=== PATIENT | female | born 1925 | race Caucasian/White ===

== ENCOUNTER 2017-04-29 12:58 | Emergency (ER) | payer MEDICARE, BC ==
[2017-04-29] MEDS ORDERED: Lorazepam 2 MG/ML VIAL ONE (13:26)
[2017-04-29] MEDS ORDERED: Lidocaine 1% w/Epinephrine 1:200K 30 ML VIAL ONE (13:27)
--- NOTE | 2017-04-29 14:27 | RAD ---
RADIOGRAPH LEFT WRIST THREE VIEWS: Date: 04-29-17 History: 89-year-old female status post-traumatic injury to the left wrist. FINDINGS: There is diffuse, severe, osteopenia. There is anterior angulation of the distal radial metaphysis an d epiphysis, relative to the diaphysis, without a visible fracture lucency. This is probably an old h ealed fracture deformity. There is severe DJD at the first CMC. No dislocation. There is an ulna plus . Ulnar styloid process is intact. IMPRESSION: 1. Angulated deformity of distal radial metaphysis and epiphysis, probably representing an old, heale d fracture. 2. Although no acute fracture is identified, the osteopenia could obscure one. Therefore, if there is focal tenderness (especially snuff box tenderness), then the general recommendation is immobilizatio n and follow up imaging in 5-10 days. 3. Severe osteoarthrosis of the first carpometacarpal joint. 4. Ulnar negative variance. 5. Severe osteoporosis. POS: [facility]
[2017-04-29] MEDS ORDERED: Bacitracin Zinc 1 Packet ONE (15:13)
== END 2017-04-29 16:29 | disposition home or self-care (01) ==
LOC: ERS 12:58
DX: S61.512A Laceration without foreign body of left wrist, initial encounter (principal); S41.111A Laceration without foreign body of right upper arm, initial encounter; I38 Endocarditis, valve unspecified; G30.9 Alzheimer's disease, unspecified; F02.80 Dementia in other diseases classified elsewhere, unspecified severity, without behavioral disturbance, psychotic disturbance, mood disturbance, and anxiety; J44.9 Chronic obstructive pulmonary disease, unspecified; Z79.899 Other long term (current) drug therapy; W01.0XXA Fall on same level from slipping, tripping and stumbling without subsequent striking against object, initial encounter
CPT/HCPCS: 12002; 96372; J2060